=== PATIENT | female | born 1995 | race Caucasian/White ===

== ENCOUNTER 2018-05-27 21:36 | Emergency (ER) | payer OTHER ==
[~2018-05-27] VITALS: Ht 170.2 cm; Wt 74.8 kg
[2018-05-27 23:04] LABS: BASOPHILS 0.6 % (0.0-2.0); HEMATOCRIT 37.8 % (37.0-47.0); HEMOGLOBIN 12.7 gm/dL (12.0-15.0); LYMPHOCYTES 12.6 % (24.0-44.0); MCH 26.7 pg (26.0-34.0); MCHC 33.5 g/dL (28.0-37.0); MCV 79.8 fL (80.0-100.0); MONOCYTES 2.1 % (1.0-8.0); PLATELET COUNT 300 thou/uL (150-400); POLYS 84.7 % (36.0-66.0); RBC 4.74 mil/uL (4.20-5.00); RDW 15.7 % (10.5-14.5); WBC 8.2 thou/uL (4.0-11.0)
[2018-05-27 23:11] LABS: CALCIUM 8.6 mg/dL (8.5-10.1); CREATININE 0.6 mg/dL (0.6-1.0); POTASSIUM 3.2 mmol/L (3.5-5.1)
[2018-05-27 23:17] LABS: ALBUMIN 3.8 g/dL (3.4-5.0); TOTAL BILIRUBIN 0.3 mg/dL (<0.1-1.0); TOTAL PROTEIN 7.5 g/dL (6.4-8.2)
[2018-05-28] MEDS ORDERED: NORCO 5-325 TA1 EACH PO (00:42)
[2018-05-28] MEDS ORDERED: PHENERGAN 25 MG25 M1 PO (00:42)
[2018-05-28] MEDS ORDERED: ZOFRAN ODT4 MG PO (00:42)
[2018-05-28 00:54] VITALS: BP 116/66
== END 2018-05-28 00:55 | disposition home or self-care (01) ==
LOC: ER 21:36
PROVIDERS: Emergency Medicine
DX: R10.9 Unspecified abdominal pain (principal); R11.2 Nausea with vomiting, unspecified; R19.7 Diarrhea, unspecified